=== PATIENT | female | born 1990 | race Caucasian/White ===

== ENCOUNTER 2016-12-06 10:35 | Emergency (ER) | payer OTHER ==
[~2016-12-06] VITALS: Ht 160 cm; Wt 58.4 kg
[~2016-12-06 10:35] MED LIST: BUSPAR5 MG PO; CLONIDINE HCL0.1 MG PO; DAY TIME COLD1 EACH PO; EFFEXOR50 MG PO; EFFEXOR75 MG PO; LEVAQUIN500 MG PO; MOTRIN IB200 MG PO; TRAZODONE HCL50 MG PO; ZOFRAN4 MG PO
[2016-12-06] MEDS ORDERED: CLONIDINE HCL0.1 MG PO (13:15)
[2016-12-06] MEDS ORDERED: ADDERALL20 MG PO (13:16)
[2016-12-06] MEDS ORDERED: MOTRIN800 MG PO (13:35)
[2016-12-06 13:45] VITALS: BP 111/69
== END 2016-12-06 13:46 | disposition home or self-care (01) ==
LOC: EME 10:35
DX: K08.89 Other specified disorders of teeth and supporting structures (principal); K01.1 Impacted teeth; F32.9 Major depressive disorder, single episode, unspecified; F17.200 Nicotine dependence, unspecified, uncomplicated; F11.90 Opioid use, unspecified, uncomplicated
CPT/HCPCS: 99281; 99283

== ENCOUNTER 2017-04-06 13:30 | Emergency (ER) | payer OTHER ==
[~2017-04-06] VITALS: Ht 160 cm; Wt 56.7 kg
[~2017-04-06 13:30] MED LIST changes: +ADDERALL20 MG PO; +MOTRIN800 MG PO
[2017-04-06 14:29] LABS: HEMATOCRIT 37.1 % (36.0-46.0); MCH 30.5 PG (29.0-34.0); MCHC 35.6 G/DL (30.0-36.0); MCV 85.7 FL (83-99); MEAN PLAT.VOLUME 11.4 uM^3 (9.5-12.4); PLATELET COUNT 284 K/uL (156-360); RBC DIS.WIDTH-CV 12.5 % (11.8-14.6); RBC DIS.WIDTH-SD 39.1 % (39-53); RED BLOOD COUNT 4.33 M/uL (3.80-5.20); WHITE BLOOD COUNT 7.8 K/uL (4.1-10.2)
[2017-04-06 14:37] LABS: CHLORIDE 105 mEq/L (99-109); POTASSIUM 3.5 mEq/L (3.7-5.4); SODIUM 138 mEq/L (136-147)
[2017-04-06 14:40] LABS: GLUCOSE 105 mg/dL (70-99)
[2017-04-06 14:41] LABS: ANION GAP 11 MEQ/L (2-14); TOTAL BILIRUBIN 0.6 mg/dL (0.0-1.0)
[2017-04-06 14:43] LABS: ALKALINE PHOSPHATASE 73 IU/L (3-129); GFR ESTIMATE (CALCULATED) > 59 mL/min/
[2017-04-06 14:44] LABS: UREA NITROGEN (BUN) 10 mg/dL (9-23)
[2017-04-06 14:47] LABS: LIPASE 24 U/L (1.0-51.0)
[2017-04-06 14:53] LABS: QUANTITATIVE HCG < 4.0 MIU/ML
[2017-04-06 16:26] LABS: ADD MIUA? YES; BILIRUBIN NEGATIVE; BLOOD NEGATIVE; COLOR YELLOW ((YELLOW)); GLUCOSE (STRIP) NEGATIVE; KETONES 5; LEUKOCYTES NEGATIVE; NITRITE NEGATIVE; PROTEIN (STRIP) NEGATIVE; SPECIFIC GRAVITY 1.041 (1.000-1.030); UROBILINOGEN 0.2 MG/DL (0.2-1.0)
[2017-04-06 16:32] LABS: BACTERIA RARE /HPF; BUDDING YEAST 1+; EPITHELIAL CELLS RARE /HPF; MUCUS TRACE /LPF; RED BLOOD CELLS 0-5 /HPF (0-5); WHITE BLOOD CELLS 0-5 /HPF (0-5)
[2017-04-06] MEDS ORDERED: ZOFRAN ODT4 MG PO (17:13)
[2017-04-06] MEDS ORDERED: MOTRIN600 MG PO (17:13)
[2017-04-06 17:51] VITALS: BP 118/69
== END 2017-04-06 17:52 | disposition home or self-care (01) ==
LOC: EME 13:30
PROVIDERS: Nurse Practitioner Family
DX: R10.84 Generalized abdominal pain (principal); R18.8 Other ascites; Y04.2XXA Assault by strike against or bumped into by another person, initial encounter; K75.9 Inflammatory liver disease, unspecified; F17.200 Nicotine dependence, unspecified, uncomplicated
CPT/HCPCS: 74177; 80053; 81003; 83690; 84702; 85027; 99281; 99285; J1885; J7030

== ENCOUNTER 2017-10-18 12:23 | Emergency (ER) | payer OTHER ==
[~2017-10-18] VITALS: Ht 160 cm; Wt 56.1 kg
[~2017-10-18 12:23] MED LIST changes: +MOTRIN600 MG PO; +ZOFRAN ODT4 MG PO
[2017-10-18] MEDS ORDERED: VENTOLIN HFA18 GM IH (13:16)
[2017-10-18 13:29] VITALS: BP 118/79
== END 2017-10-18 13:31 | disposition home or self-care (01) ==
LOC: EME 12:23
DX: J06.9 Acute upper respiratory infection, unspecified (principal); F17.200 Nicotine dependence, unspecified, uncomplicated; F32.9 Major depressive disorder, single episode, unspecified; F41.9 Anxiety disorder, unspecified
CPT/HCPCS: 99281; 99284